=== PATIENT | male | born 1995 | race Caucasian/White ===

== ENCOUNTER 2021-02-28 14:19 | Emergency (ER) | payer BC, OTHER ==
[~2021-02-28] VITALS: Ht 172 cm; Wt 58.6 kg
[2021-02-28 14:32] VITALS: BP 145/98
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
== END 2021-02-28 14:45 | disposition home or self-care (01) ==
LOC: ER FS 14:23
DX: S49.91XA Unspecified injury of right shoulder and upper arm, initial encounter (principal); Y04.0XXA Assault by unarmed brawl or fight, initial encounter
CPT/HCPCS: 99282

== ENCOUNTER → 2021-03-01 | Outpatient (CLI) | payer BC ==
--- NOTE | 2021-03-01 14:06 | Diagnostic Imaging Report ---
Right shoulder at 1052h. INDICATION: Shoulder pain 3 views were obtained. There are no prior studies available for comparison. There is no fracture, dislocation or acute bony abnormality evident. The glenohumeral and acromioclavicular joints are fairly well-maintained. The soft tissues are unremarkable. IMPRESSION: 1. There is no evidence for an acute bony abnormality. 2. If there is clinical concern regarding an injury to the rotator cuff or labrum, then MRI would be recommended for further evaluation. Dictated by: Dictated on workstation # [id number]
== END ==
LOC: RAD FS 10:22
PROVIDERS: ATTEND Nurse Practitioner
DX: M25.511 Pain in right shoulder (principal)
CPT/HCPCS: 73030

== ENCOUNTER → 2021-03-04 | Outpatient (CLI) | payer BC ==
[~2021-03-04] MED LIST: GADOBUTROL 7.5 MMOL/7.5 ML (GADAVIST) VIAL IV ONE; IOHEXOL 300 MG/ML 50 ML (OMNIPAQUE 300) VIAL IV ONE
--- NOTE | 2021-03-04 11:28 | Diagnostic Imaging Report ---
RIGHT SHOULDER INJECTION FOR MRI INDICATION : Shoulder pain The previous plain film examination of the right shoulder performed on 03/01/2021 failed to show any sign of an acute abnormality. The preliminary film was unremarkable. Following aseptic preparation of the skin a 21-gauge needle is advanced into the glenohumeral joint using fluoroscopic guidance. Approximately 12 mL of a mixture of Omnipaque 240, Gadavist and sodium chloride was infused. The patient tolerated the procedure well and was sent to the MR suite in good condition. 23 seconds of fluoroscopy time was utilized. IMPRESSION: There has been a successful injection of the right glenohumeral joint. MRI is pending for further study. Dictated by: Dictated on workstation # [id number]
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
== END ==
LOC: RAD 09:13
PROVIDERS: ATTEND Nurse Practitioner
DX: S43.431A Superior glenoid labrum lesion of right shoulder, initial encounter (principal); X58.XXXA Exposure to other specified factors, initial encounter
CPT/HCPCS: 23350; 73040; 73222